=== PATIENT | male | born 1995 | race Caucasian/White ===

== ENCOUNTER 2020-05-05 19:07 | Day surgery (SDC) | payer OTHER, BC ==
[~2020-05-05] VITALS: Ht 190.5 cm; Wt 90.7 kg
[2020-05-05] VITALS (8 sets, daily range): BP systolic 100–123; BP diastolic 54–81
--- NOTE | 2020-05-05 19:20 | ED GI ---
General Stated Complaint: FOOD STUCK IN THROAT Source of Information: Patient History of Present Illness Date Seen by Provider: May 05, 2020 Time Seen by Provider: 19:15 Initial Comments PT ARRIVES VIA POV FROM HOME STATES 45 MINUTES AGO, HE WAS EATING FRIED CHICKEN AND [employer] AND STATES IT IS STUCK IN HIS ESOPHAGUS C/O UNABLE TO SWALLOW SALIVA C/O PRESSURE SENSATION / FULLNESS IN MIDDLE OF CHEST C/O FEELS NEED TO BURP,BUT CANNOT. STATES THIS HAS HAPPENED A FEW TIMES IN THE PAST, BUT HAS ALWAYS RESOLVED ON IT'S OWN WENT TO DR ONE TIME, WHEN IT FIRST HAPPENED 2-3 YEARS AGO, BUT HAS NEVER HAD ENDOSCOPY. STATES HE SAW A GI SPECIALIST IN [place] BUT STATES HE WAS TOLD THAT NOTHING ELSE NEEDED TO BE DONE AT THAT TIME STATES HE TRIES TO AVOID FOODS/MEATS THAT HE KNOWS WILL TRIGGER IT PT DESCRIBES ONGOING GERD SYMPTOMS, BUT HAS NEVER TAKEN ANY MEDICATION FOR IT. 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 PCP: NONE Allergies and Home Medications Allergies Coded Allergies: No Known Drug Allergies (Unverified , 05/05/20) Patient Home Medication List Home Medication List Reviewed: Yes Review of Systems Review of Systems Constitutional: no symptoms reported Respiratory: No Symptoms Reported Cardiovascular: See HPI Gastrointestinal: See HPI Past Gymrbra-Ouujqs-Zcmzms Hx Past Med/Social Hx: Reviewed and Corrections made Patient Social History Alcohol Use: Denies Use Drug of Choice: DENIES Smoking Status: Never a Smoker Immunizations Up To Date Tetanus Booster (TDap): Less than 5yrs PED Vaccines UTD: Yes Past Medical History Surgeries: No Respiratory: No Cardiac: No Neurological: No Genitourinary: No Gastrointestinal: Yes (ESOPHAGEAL OBSTRUCTION/FOOD BOLUS IN ESOPHAGUS) Musculoskeletal: No Endocrine: No HEENT: No Cancer: No Psychosocial: No Integumentary: No Blood Disorders: No Physical Exam Vital Signs Vital Signs - First Documented 05/05/20 19:12 Temp 36.4 Pulse 85 Resp 16 B/P (MAP) 119/99 (106) O2 Delivery Room Air Capillary Refill : Height/Weight/BMI Height: '" Weight: lbs. oz. 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, no motor/sensory deficits, alert, oriented x 3 Skin: normal color, warm/dry Progress/Results/Core Measures Results/Orders My Orders Orders - ADAMA DEWEY DO Ed Iv/Invasive Line Start (05/05/20 19:16) Glucagon Emergency Kit (Glucagon Emergen (05/05/20 19:30) Ondansetron Injection (Zofran Injectio (05/05/20 19:45) Glucagon Emergency Kit (Glucagon Emergen (05/05/20 19:45) Medications Given in ED Current Medications Medications Dose Ordered Sig/Alejandra Route Start Time Stop Time Status Last Admin Dose Admin Glucagon 1 mg ONCE ONCE IV 05/05/20 19:30 05/05/20 19:31 DC 05/05/20 19:24 1 MG Glucagon 1 mg ONCE ONCE IV 05/05/20 19:45 05/05/20 19:46 DC 05/05/20 19:49 1 MG Ondansetron HCl 4 mg ONCE ONCE IVP 05/05/20 19:45 05/05/20 19:46 DC 05/05/20 19:49 4 MG Vital Signs/I&O 05/05/20 19:12 Temp 36.4 Pulse 85 Resp 16 B/P (MAP) 119/99 (106) O2 Delivery Room Air Progress Progress Note : Progress Note GIVEN GLUCAGON X 2 DOSES WITHOUT IMPROVEMENT GIVEN ZOFRAN AND PROTONIX Departure Communication (Admissions) 2012--SPOKE WITH 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 WILL BE IN TO TAKE PT TO ENDOSCOPY 2099--ENDOSCOPY STAFF HERE TO TAKE PT Impression Primary Impression: FOOD BOLUS IN ESOPHAGUS Disposition: ADMITTED INPATIENT (TO ENDOSCOPY) Condition: Stable/Unchanged ADAMA DEWEY DO May 05, 2020 19:20
[2020-05-05] MEDS ORDERED: GLUCAGON EMERGENCY 1 MG/KIT IV ONE ×2 (19:30→19:45)
[2020-05-05] MEDS ORDERED: ONDANSETRON 4 MG/2 ML (SDV) Z0FRAN IVP ONE ×2 (19:45→20:45)
[2020-05-05] MEDS ORDERED: PANTOPRAZOLE 40 MG (PROTONIX) VIAL IV ONE (20:45)
[2020-05-05] MEDS ORDERED: proPOfol 200 MG/20 ML (DIPRIVAN) VIAL IV ONE ×2 (20:52→21:22)
[2020-05-05] MEDS ORDERED: MIDAZOLAM 2 MG/2 ML (VERSED) VIAL ONE (20:55)
[2020-05-05] MEDS ORDERED: LACTATED RINGERS 1,000 ML IV PRN (21:00)
--- NOTE | 2020-05-05 21:16 | Consultation - Surgery ---
History of Present Illness History of Present Illness Patient Consulted On(yuri/time) 05/05/20 21:10 Time Seen by Provider: 21:00 History of Present Illness Surgery asked to consult regarding esophageal obstruction. HPI per ED: PT ARRIVES VIA POV FROM HOME, STATES 45 MINUTES AGO, HE WAS EATING [employer]RI[employer] AND [employer] AND STATES IT IS STUCK IN HIS ESOPHAGUS C/O UNABLE TO SWALLOW SALIVA, C/O PRESSURE SENSATION / FULLNESS IN MIDDLE OF CHEST, C/O FEELS NEED TO BURP,BUT CANNOT. STATES THIS HAS HAPPENED A FEW TIMES IN THE PAST, BUT HAS ALWAYS RESOLVED ON IT'S OWN, WENT TO DR ONE TIME, WHEN IT FIRST HAPPENED 2-3 YEARS AGO, BUT HAS NEVER HAD ENDOSCOPY. STATES HE SAW A GI SPECIALIST IN [place] BUT STATES HE WAS TOLD THAT NOTHING ELSE NEEDED TO BE DONE AT THAT TIME, STATES HE TRIES TO AVOID FOODS/MEATS THAT HE KNOWS WILL TRIGGER IT. PT DESCRIBES ONGOING GERD SYMPTOMS, BUT HAS NEVER TAKEN ANY MEDICATION FOR IT. 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 When I spoke to pt and his father, they state he went to specialist in [place] and had small scope placed down nose (probably an ENT). He has never had to have surgery to remove piece of food. He has mild chest pain, mid-sternal "where the chicken is stuck" and rates it 3 out of 10. Radiates into the back. Allergies and Home Medications Allergies Coded Allergies: No Known Drug Allergies (Unverified , 05/05/20) Patient Home Medication List Home Medication List Reviewed: Yes Past Nngyndr-Fbxlyo-Mqjeoo Hx Patient Social History Drug of Choice: DENIES Smoking Status: Never a Smoker Alcohol Use?: No Substance type: Other (Denies drug use) Immunizations Up To Date Tetanus Booster (TDap): Less than 5yrs PED Vaccines UTD: Yes Surgeries History of Surgeries: No Respiratory History of Respiratory Disorde: No Cardiovascular History of Cardiac Disorders: No Neurological History of Neurological Disord: No Genitourinary History of Genitourinary Disor: No Gastrointestinal History of Gastrointestinal Di: Yes Gastrointestinal Disorders: Gastroesophageal Reflux Musculoskeletal History of Musculoskeletal Dis: No Endocrine History of Endocrine Disorders: No HEENT History of HEENT Disorders: No Cancer History of Cancer: No Psychosocial History of Psychiatric Problem: No Integumentary History of Skin or Integumenta: No Blood Transfusions History of Blood Disorders: No Family Medical History Significant Family History: Other Conditions/Hx (Father had a blood clot in leg and is on blood thinners) Review of Systems-General Constitutional: No chills, No malaise, No weakness EENTM: throat pain; No blurred vision, No double vision, No mouth pain, No mouth swelling, No epistaxis Respiratory: No cough, No dyspnea on exertion Cardiovascular: No chest pain, No edema, No palpitations Gastrointestinal: No abdominal pain; dysphagia; No melena; nausea, vomiting Genitourinary: No dysuria, No frequency, No hematuria Musculoskeletal: No joint pain, No joint swelling, No muscle pain, No muscle stiffness Skin: No change in color, No change in hair/nails Psychiatric/Neurological: Denies Anxiety, Denies Depressed, Denies Seizure, Denies Tremors Other pt denies any hx of abnormal bleeding or bruising Physical Exam-General Problems Physical Exam Vital Signs Vital Signs - First Documented 05/05/20 19:12 Temp 36.4 Pulse 85 Resp 16 B/P (MAP) 119/99 (106) O2 Delivery Room Air Capillary Refill : Less Than 3 Seconds General Appearance: WD/WN, mild distress Eyes: Bilateral Eye PERRL, Bilateral Eye EOMI HEENT: pharynx normal; No scleral icterus (R), No scleral icterus (L), No pale conjunctivae (R), No pale conjunctivae (L) Neck: non-tender, full range of motion, supple, normal inspection Respiratory: chest non-tender, lungs clear, normal breath sounds, no respiratory distress, no accessory muscle use Cardiovascular: regular rate, rhythm, no edema, no murmur Gastrointestinal: normal bowel sounds, non tender, soft, no organomegaly, no pulsatile mass Back: no CVA tenderness, no vertebral tenderness Extremities: normal range of motion, non-tender, normal inspection, no pedal edema, no calf tenderness, normal capillary refill 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 Discussed risks and complications; not limited to pain, bleeding, infection and even esophageal perforation. All questions answered to pt and his father's satisfaction. Consent obtained, no need for ABX. MARCUS KAPOOR DO May 05, 2020 21:16
[2020-05-05] MEDS ORDERED: SEVOFLURANE (ULTANE) 15 ML INHAL SOLN ONE (21:22)
--- NOTE | 2020-05-05 21:30 | Progress Note-Post Operative ---
Post-Operative Progess Note Surgeon (s)/Turning And Beading Machine Operator (s) Surgeon MARCUS KAPOOR DO Turning And Beading Machine Operator: none Pre-Operative Diagnosis Esophageal obstruction Post-Operative Diagnosis same plus Gastritis and possible Esophagitis Procedure & Operative Findings Date of Procedure 05/05/20 Procedure Performed/Findings EGD with bx and removal of food bolus Anesthesia Type GET Estimated Blood Loss Estimated blood loss (mL): scant Specimens/Packing Specimens Removed antral bx GE jxn bx MARCUS KAPOOR DO May 05, 2020 21:30
[2020-05-05] MEDS ORDERED: SUCCINYLCHOLINE INJ 100 MG/5 ML SYR/VIAL ONE (21:31)
[2020-05-05] MEDS ORDERED: ONDANSETRON 4 MG/2 ML (SDV) Z0FRAN ONE (21:31)
--- NOTE | 2020-05-05 21:31 | Endoscopy Discharge Instruct ---
Endo Procedure/Findings Findings 1.: Gastritis 2.: Other Findings (Esophagitis) Discharge Instructions - Activity: You might feel a little sleepy until tomorrow. This is due to the medicine you received to relax you. Until tomorrow, you should: NOT drive a car, operate machinery or power tools. NOT drink any alcoholic beverages. NOT make any important decisions or sign importortant papers. Do not return to work until tomorrow, unless otherwise instructed. Resume previous activities tomorrow. Diet: Start by taking liquids. If you tolerate liquids, advance to solid food. 1.: EGD in 3 years Notify Physician - If you experience excessive bleeding, unusual abdominal pain, fever, or chest pain, contact your doctor immediately. MARCUS KAPOOR DO May 05, 2020 21:30
--- NOTE | 2020-05-05 21:45 | Anesthesia-General Post-Op ---
General Patient Condition Mental Status/LOC: Same as Preop Cardiovascular: Satisfactory Nausea/Vomiting: Absent Respiratory: Satisfactory Pain: Controlled Complications: Absent Post Op Complications Complications None Follow Up Care/Instructions Patient Instructions None needed. Anesthesia/Patient Condition Patient Condition Patient is doing well, no complaints, stable vital signs, no apparent adverse anesthesia problems. No complications reported per nursing. CINDY BALLESTEROS CRNA May 05, 2020 21:45
--- NOTE | 2020-05-05 22:54 | OPERATIVE REPORT ---
DATE OF SERVICE: 05/05/2020 PREOPERATIVE DIAGNOSIS: Esophageal obstruction. POSTOPERATIVE DIAGNOSES: Esophageal obstruction, gastritis, and esophagitis. PROCEDURE: EGD with biopsy and removal of food bolus. SURGEON: Ángel Licea DO SHAPER MACHINE HAND: None. ANESTHESIA: General endotracheal tube. SPECIMEN: Biopsy of the antrum, biopsy of GE junction. BLOOD LOSS: Scant. FLUIDS: Per anesthesia. POSTOPERATIVE CONDITION: Stable. INDICATION FOR PROCEDURE: The patient is a 24-year-old male who was eating at [employer] and got a piece of chicken stuck. Just before this procedure states he vomited half of it up, but still could feel it in his chest. FINDINGS: The patient had a very soft food bolus up in the esophagus, some mild gastritis and some mild esophagitis. PROCEDURE NOTE: After informed consent was obtained, the patient was brought to the operating room, placed on the operating table in supine position. He was intubated and then placed the EGD scope down the mouth into the esophagus, saw the food bolus, took a picture of this and able to gently push this and flushed this down and it went in easily into the stomach. Pushed into the stomach, to antrum. At the antrum, there is some mild gastritis, pushed into the duodenum. Duodenum looked fine. Pulled back, did a biopsy of the antrum. Retroflexed the scope, did not see any kind of hiatal hernia. He did have some retained food pulled up into the GE junction and took some mild creeping up of the Z line, so did a biopsy of the GE junction and then suctioned all the air out of stomach and then pulled the scope up the esophagus and took pictures on the way up the esophagus. There were not any strictures or any type of closure to cause this obstruction for the food to catch on and at this point then removed the scope completely from the esophagus and out of the mouth. The patient tolerated the procedure. He was recovered. He was sent to recovery room. Job ID: [id number] DocumentID: [id number] Dictated Date: 05/05/2020 21:37:48 Crop And Soil Scientist Date: 05/05/2020 22:54:20 Dictated By: ÁNGEL LICEA DO [facility]
== END 2020-05-05 23:20 | disposition home or self-care (01) ==
LOC: ER 19:09 → ENDO 20:31 → ER 23:20
PROVIDERS: ATTEND Surgery
DX: T18.128A Food in esophagus causing other injury, initial encounter (principal); K20.0 Eosinophilic esophagitis; K29.70 Gastritis, unspecified, without bleeding; Z20.822 Contact with and (suspected) exposure to COVID-19
CPT/HCPCS: 43239; 43247; 96374; 96375; 96376; 99285; U0002; 87635